=== PATIENT | male | born 1990 | race Hispanic/Latino ===

== ENCOUNTER 2019-08-27 05:11 | Emergency (ER) | payer OTHER, MEDICAID, SELFPAY ==
[2019-08-27 05:16] VITALS: BP 137/94; PULSE 87; RESP 20; TEMP 36.4; O2SAT 100
--- NOTE | 2019-08-27 05:16 | ED_ITS ---
HPI - General Adult General Chief complaint: Toxicology Problem Stated complaint: Overdose Time Seen by Provider: 08/27/19 05:14 Source: patient and EMS Mode of arrival: EMS Limitations: no limitations History of Present Illness HPI narrative: Patient is a 29-year-old male. Arrived by EMS for evaluation of what is suspected to be a heroin overdose. [facility] [place] [facility] a male that was unresponsive. Patient received 2 mg of intranasal Narcan by law enforcement prior to their arrival. This was approximately 30 minutes prior to arrival here in the emergency department. Was reported by EMS that the 2 mg of Narcan reversed the patient's presenting condition. They state he has been worsen oriented with stable vital signs and cooperative in route to the emergency department. He did refuse a IV. Here in the emergency department patient states that he was cold but that he was ?fine? he stated that he did inject with heroin. He has used heroin in the past. He has no complaints. Review of Systems Constitutional Constitutional: Denies headache(s) ENT Ears, Nose, Mouth, and Throat: Denies headache(s) Cardiovascular Cardiovascular: Denies chest pain and Denies dyspnea Respiratory Respiratory: Denies dyspnea Gastrointestinal Gastrointestinal: Denies abdominal pain Integumentary/Breasts Skin/Breast: Denies rash Neurologic Neurologic: Denies behavioral changes and Denies headache(s) Psychiatric Psychiatric: Denies behavioral changes Patient History Medical History Drug abuse (Acute) Social History lives independently: Yes Smoking Status: Current every day smoker Exam Initial Vital Signs Initial Vital Signs: Vital Signs Temperature 97.6 F 08/27/19 05:16 Pulse Rate 87 08/27/19 05:16 Respiratory Rate 20 08/27/19 05:16 Blood Pressure 137/94 H 08/27/19 05:16 Pulse Oximetry 100 08/27/19 05:16 Const General: cooperative and comfortable Limitations: mental status not altered HENMT Head: normal to inspection and normocephalic Resp Effort & Inspection: normal respiratory effort Auscultation: clear to auscultation bilaterally Cardio Rate: regular rate Rhythm: regular rhythm Neuro General: alert, awake and oriented x3 Cognition: normal cognition Speech: speech normal Extrem General: capillary refill normal Psych Appearance: grossly normal and well kempt Scores GCS [facility] coma scale eye opening: Spontaneous [facility] coma scale verbal response: Orientated [facility] coma scale motor response: Obey commands [facility] coma scale total score: 15 Course Vital Signs Vital signs: Vital Signs - 8 hr 08/27/19 05:16 08/27/19 05:25 08/27/19 05:46 Temperature 97.6 F Pulse Rate 87 88 82 Respiratory Rate 20 22 24 Blood Pressure 137/94 H Blood Pressure [Right Arm] 131/89 139/64 Pulse Oximetry 100 100 97 Medical Decision Making MDM Narrative Medical decision making narrative: Patient admitted to injecting himself with heroin. Received 2 mg of Narcan intranasally prior to arrival which resolved the initial presentation. Patient is observed here in the emergency department for greater than 2 hours after he was administered the Narcan without any somnolence. No desaturations. No respiratory issues. Patient states that he feels okay going home. He was given return precautions and follow-up instructions. Discharge Plan Departure Patient Disposition: Home Clinical Impression: Drug abuse Accidental heroin overdose Qualifiers: Encounter type: initial encounter Qualified Code(s): T40.1X1A - Poisoning by heroin, accidental (unintentional), initial encounter Instructions: DI for Drug Abuse and Drug Addiction Activity Restrictions/Additional Instructions: No driving for the next 24 hours or in the future if you partake in intoxicating substances. Recommend that you contact her primary provider. If you do not have 1 you can contact [phone]. That is the health resource is coordinator here at the hospital and they can help you establish a primary provider.
[2019-08-27 05:25] VITALS: BP 131/89; PULSE 88; RESP 22; O2SAT 100
[2019-08-27 05:46] VITALS: BP 139/64; PULSE 82; RESP 24; O2SAT 97
[2019-08-27 06:51] VITALS: BP 135/67; PULSE 87; RESP 20; O2SAT 97
== END 2019-08-27 07:03 | disposition home or self-care (01) ==
PROVIDERS: Emergency Provider Emergency Medicine
DX: T40.1X1A Poisoning by heroin, accidental (unintentional), initial encounter (principal); F19.10 Other psychoactive substance abuse, uncomplicated
CPT/HCPCS: 99282; 99283